=== PATIENT | female | born 1975 | race Caucasian/White ===

== ENCOUNTER 2022-04-08 16:54 | Emergency (ER) | payer OTHER, MEDICAID ==
[~2022-04-08] VITALS: Ht 172.7 cm; Wt 71.7 kg
--- NOTE | 2022-04-08 17:12 | NUR ---
RECEIVED PT FROM [facility]ON[facility] ORTA. PT BIBS FOR C/O RIGHT SIDE FACIAL SWELLING AND SWELLING AT TIP OF NOSE. PT STATES SWELLING STARTED 2-3 DAYS AGO. PT STATES SHE HAS FELT SICK FOR THE LAST FEW DAYS. PT IS AAOX4. ON R/A. DENIES SOB. NORMAL S1S2 NOTED. DISTAL PULSES NORMAL. SKIN INTACT. DENIES PAIN.
[2022-04-08 17:15] VITALS: BP_SYST 130
--- NOTE | 2022-04-08 17:20 | NUR ---
DR. OSPINA AT BEDSIDE.
[2022-04-08] MEDS ORDERED: PROPARACAINE (OPTHANINE 0.5%) 15 ML DROPS OP ONE (17:30)
[2022-04-08] MEDS ORDERED: FLUORESCEIN SODIUM 1 MG OPHTHALMIC STRIP OP ONE (17:30)
--- NOTE | 2022-04-08 17:31 | NUR ---
EYE KIT GIVEN TO DR OSPINA FOR EXAM
--- NOTE | 2022-04-08 17:42 | NUR ---
FLU/COVID OBTAINED AND TAKEN TO LAB.
--- NOTE | 2022-04-08 18:00 | NUR ---
CT SCAN COMPLETED.
[2022-04-08 18:15] LABS: BASOPHILS % (AUTO) 0.5 % (0.0-2.0); EOSINOPHILS # (AUTO) 0.1 K/uL (0.0-0.4); EOSINOPHILS % (AUTO) 0.6 % (0.0-4.0); HEMATOCRIT 41.9 % (36-48); HEMOGLOBIN 14.1 g/dL (12.0-16.0); LYMPHOCYTES # (AUTO) 1.7 K/uL (1.0-5.5); MEAN CORPUSCULAR HEMOGLOBIN 32 pg (27-31); MEAN CORPUSCULAR HGB CONC 34 % (32-36); MEAN CORPUSCULAR VOLUME 95 fL (79.0-98.0); MONOCYTES # (AUTO) 0.5 K/uL (0.0-1.0); MONOCYTES % (AUTO) 5.5 % (1.7-9.3); NEUTROPHILS # (AUTO) 6.6 K/uL (1.8-7.7); NEUTROPHILS % (AUTO) 74.4 % (40.0-70.0); PLATELET COUNT (AUTO) 248 K/uL (130-430); RED BLOOD CELL COUNT(AUTO) 4.42 MIL/uL (4.2-6.2); RED CELL DISTRIBUTION WIDTH 14.3 % (9.0-15.0); WHITE BLOOD COUNT (AUTO) 8.8 K/uL (4.8-10.8)
[2022-04-08 18:24] LABS: CREATININE 0.76 mg/dL (0.55-1.30)
[2022-04-08 18:30] LABS: ALBUMIN 3.6 g/dL (3.4-4.8); TOTAL BILIRUBIN 0.2 mg/dL (0.0-1.0)
[2022-04-08] MEDS ORDERED: DIPHENHYDRAMINE INJ 50 MG/ML VIAL IVP ONE (18:45)
[2022-04-08] MEDS ORDERED: ACETAMINOPHEN 325 MG TABLET PO ONE (18:45)
[2022-04-08] MEDS ORDERED: PROCHLORPERAZINE EDISYLATE 10 MG/2 ML VIAL IVP ONE (18:45)
[2022-04-08] MEDS ORDERED: NACL 0.9% 1,000 ML IV ONE (19:30)
--- NOTE | 2022-04-08 19:30 | NUR ---
ENDORESED PT TO [facility]ON[facility] SAUCEDO. ALL QUESTIONS AND CONCERNS ADDRESSED.
[2022-04-08] MEDS ORDERED: OFLO5DRO6 RIGHT EYE (20:18)
[2022-04-08] MEDS ORDERED: ACET-2634 PO (20:18)
[2022-04-08] MEDS ORDERED: ACYC-133 PO (20:18)
[2022-04-08 22:30] VITALS: BP_SYST 130
--- NOTE | 2022-04-08 22:30 | NUR ---
Patient given written and verbal discharge instructions and verbalizes understanding. ER MD discussed with patient the results and treatment provided. Patient in stable condition. ID arm band removed. IV catheter removed intact and dressing applied, no active bleeding. Rx of tylenol, acyclovir, ofloxacin given. Patient educated on pain management and to follow up with PMD. Pain Scale 0/10. Opportunity for questions provided and answered. Medication side effect fact sheet provided.
== END 2022-04-08 22:30 | disposition home or self-care (01) ==
LOC: SED 16:54
DX: S05.01XA Injury of conjunctiva and corneal abrasion without foreign body, right eye, initial encounter (principal); R51.9 Headache, unspecified; R50.9 Fever, unspecified; R11.2 Nausea with vomiting, unspecified; Z88.1 Allergy status to other antibiotic agents; Z88.6 Allergy status to analgesic agent; Z88.8 Allergy status to other drugs, medicaments and biological substances; Z72.0 Tobacco use; Z79.899 Other long term (current) drug therapy; Z20.822 Contact with and (suspected) exposure to COVID-19; X58.XXXA Exposure to other specified factors, initial encounter; Y93.89 Activity, other specified; Y92.89 Other specified places as the place of occurrence of the external cause; Y99.8 Other external cause status
CPT/HCPCS: 99285; 70450; 96374; 96361; 96375; 87426; 80053; 85025; 36415; 70486; 76376; 81025; 87804 ×2; J1200; J0780; J7030